=== PATIENT | male | born 1990 | race Hispanic/Latino ===

== ENCOUNTER 2018-07-04 20:50 | Emergency (ER) | payer BC ==
[~2018-07-04] VITALS: Ht 175.3 cm; Wt 108.9 kg
[~2018-07-04 20:50] MED LIST: BUTALB-CAFF-AC1 EACH PO
--- OUTSIDE RECORDS SUMMARY | 2018-07-04 20:53 | XMS REPORT ---
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 Allergies, Adverse Reactions, Alerts Allergy Name Allergy Type Status Severity Reaction(s) Onset Date Inactive Date Treating Clinician Comments No Known Allergies DA Active U 2015-05-23 00:00:00 Medications This patient has no known medications.
[2018-07-04] MEDS ORDERED: ONDANSETRON HCL INJ 2 MG/ML VIAL IV STA (21:12)
[2018-07-04] MEDS ORDERED: SODIUM CHLORIDE 0.9% 1000ML 1,000 ML IV SCH (21:15)
[2018-07-04] MEDS ORDERED: DONNATAL/LIDOCAINE/MAALOX 30 ML SUSP PO ONE (21:15)
[2018-07-04 21:38] LABS: BASOPHILS % 0.6 % (0.0-1.0); EOSINOPHILS # (AUTO) 0.6 (0.0-0.4); EOSINOPHILS % 9.8 % (0.0-6.0); HEMATOCRIT 42.3 % (38.2-49.6); HEMOGLOBIN 14.6 g/dL (14.0-18.0); LYMPHOCYTES % 46.1 % (18.0-39.1); MEAN CORPUSCULAR HEMOGLOBIN 29.8 pg (28-32); MEAN CORPUSCULAR HGB CONC 34.5 g/dL (31-35); MEAN CORPUSCULAR VOLUME 86.3 fL (81-99); MONOCYTES # (AUTO) 0.5 (0.2-0.8); MONOCYTES % 8.1 % (4.4-11.3); NEUTROPHILS # (AUTO) 2.3 (2.1-6.9); NEUTROPHILS % 35.2 % (38.7-80.0); PLATELET COUNT 248 x10e3/uL (140-360); RED CELL DISTRIBUTION WIDTH 12.2 % (11.7-14.4)
--- NOTE | 2018-07-04 22:17 | Diagnostic Imaging Report ---
EXAM: CT ABDOMEN AND PELVIS WITH IV CONTRAST INDICATION: Right and left upper quadrant and back pain, headache COMPARISON: None TECHNIQUE: The abdomen and pelvis were scanned using a multidetector helical scanner. Coronal and sagittal reformations were obtained. Dose modulation, iterative reconstruction, and/or weight based adjustment of the mA/kV was utilized to reduce the radiation dose to as low as reasonably achievable. Routine protocol performed. IV Contrast: 100 cc Isovue-370 Oral Contrast: None CTDIvol has been reviewed. It is below the limits set by the Radiation Protocol Committee (RPC). FINDINGS: LOWER THORAX: No consolidations LIVER: No masses BILIARY: Normal gallbladder. No ductal dilation. SPLEEN: No masses PANCREAS: No masses ADRENALS: No nodules KIDNEYS: No enhancing masses. No hydronephrosis. GI TRACT: No wall thickening or obstruction. The appendix is prominent in its mid section measuring up to 1 cm, however it is completely air-filled and without surrounding inflammation and is likely normal for this patient. VESSELS: Normal PERITONEUM/RETROPERITONEUM: No free air or fluid LYMPH NODES: No lymphadenopathy REPRODUCTIVE ORGANS: Normal BLADDER: Decompressed SOFT TISSUES: Normal BONES: No suspicious bone lesions. IMPRESSION: No acute findings to explain patient's symptoms. Signed by: Dr. Melissa Yu M.D. on 07/04/2018 10:14 PM
[2018-07-04 22:30] VITALS: BP 146/81
== END 2018-07-04 22:37 | disposition home or self-care (01) ==
LOC: FSED 20:50
DX: R10.13 Epigastric pain (principal); R10.12 Left upper quadrant pain; K29.00 Acute gastritis without bleeding
CPT/HCPCS: 36415; 74177; 85025; 99284; J2405

== ENCOUNTER 2018-09-30 10:05 | Emergency (ER) | payer BC ==
[~2018-09-30] VITALS: Ht 175.3 cm; Wt 108.9 kg
[2018-09-30] MEDS ORDERED: ACETAMINOPHEN 325 MG TAB PO ONE ×3 (12:00→18:30)
[2018-09-30 13:16] LABS: STREPTOCOCCUS GRP A ANTIGEN NEGATIVE (NEGATIVE)
[2018-09-30 13:25] LABS: INFLUENZAE A&B ANTIGEN (RAPID) POSITIVE FLU B (NEGATIVE)
[2018-09-30] MEDS ORDERED: IBUPROFEN 600 MG TAB PO STA (13:32)
--- NOTE | 2018-09-30 13:37 | Diagnostic Imaging Report ---
EXAMINATION: CHEST 2 VIEWS INDICATION: Fever, cough, vomiting blood. COMPARISON: None FINDINGS: TUBES and LINES: None. LUNGS: Low lung volumes. No evidence of lobar pneumonia or pulmonary edema. There is bilateral bronchial wall thickening. There is possible bronchiectasis versus a cavitary lesion in the right upper lung. PLEURA: No pleural effusion or pneumothorax. HEART AND MEDIASTINUM: The cardiomediastinal silhouette is unremarkable. BONES AND SOFT TISSUES: No acute osseous abnormality. UPPER ABDOMEN: No free air under the diaphragm. IMPRESSION: Possible bronchiectasis versus cavitary lesion in the right upper lung. Suggest chest CT for further evaluation. Bilateral bronchial wall thickening, suggestive of bronchitis in the setting of cough. No evidence of pneumonia. Signed by: Dr. Josy Andrew MD on 09/30/2018 1:33 PM
[2018-09-30 14:34] LABS: BASOPHILS % 0.3 % (0.0-1.0); EOSINOPHILS # (AUTO) 0.4 (0.0-0.4); EOSINOPHILS % 3.9 % (0.0-6.0); HEMATOCRIT 42.7 % (38.2-49.6); HEMOGLOBIN 14.2 g/dL (14.0-18.0); LYMPHOCYTES # (AUTO) 1.7 (1.0-3.2); LYMPHOCYTES % 17.4 % (18.0-39.1); MEAN CORPUSCULAR HEMOGLOBIN 28.7 pg (28-32); MEAN CORPUSCULAR HGB CONC 33.3 g/dL (31-35); MEAN CORPUSCULAR VOLUME 86.3 fL (81-99); MONOCYTES # (AUTO) 0.7 (0.2-0.8); MONOCYTES % 7.7 % (4.4-11.3); NEUTROPHILS # (AUTO) 6.7 (2.1-6.9); NEUTROPHILS % 70.4 % (38.7-80.0); PLATELET COUNT 215 x10e3/uL (140-360); RED BLOOD COUNT 4.95 x10e6/uL (4.3-5.7); RED CELL DISTRIBUTION WIDTH 12.2 % (11.7-14.4)
[2018-09-30 14:51] LABS: ANION GAP 13.1 mmol/L (8-16); BLOOD UREA NITROGEN 17 mg/dL (7-26); BUN/CREATININE RATIO 16 (6-25); CALCIUM 9.5 mg/dL (8.4-10.2); CARBON DIOXIDE 21 mmol/L (22-29); CHLORIDE 103 mmol/L (98-107); CREATININE, SERUM 1.05 mg/dL (0.72-1.25); EST GLOMERULAR FILTRATION RATE > 60 ML/MIN (60-); GLUCOSE 87 mg/dL (74-118); POTASSIUM 4.1 mmol/L (3.5-5.1); SODIUM 133 mmol/L (136-145)
[2018-09-30] MEDS ORDERED: SODIUM CHLORIDE 0.9% 50ML 50 ML ONE (15:49)
[2018-09-30] MEDS ORDERED: IOPAMIDOL 370 MG/ML 200 ML INFUS..BTL INJ ONE (15:50)
--- NOTE | 2018-09-30 17:51 | Diagnostic Imaging Report ---
EXAMINATION: CT scan of the chest with contrast. TECHNIQUE: Spiral CT images of the chest were performed from the lung apices to the level of the adrenal glands after the intravenous administration Omnipaque 300. Coronal and sagittal reformatted images were obtained. COMPARISON: Chest radiograph 09/30/2018 CLINICAL HISTORY:A 28-year-old presents with hematemesis in the setting of influenza. DISCUSSION: LUNGS AND AIRWAYS: An approximately 2.3 x 2.3 cm rounded groundglass opacity in the posterior aspect of the right upper lobe along the major fissure adjacent to the peribronchovascular bundle. PLEURA: No pneumothorax or pleural effusions. HEART AND MEDIASTINUM: Mildly prominent right hilar node measuring up to 1.2 cm in diameter (series 2, image 40). Otherwise, no significant adenopathy identified. The heart and pericardium are within normal limits. LYMPH NODES: There is no mediastinal, hilar or axillary lymphadenopathy. ABDOMEN: Limited contrast-enhanced views of the upper abdomen show no abnormality within the visualized liver, spleen, pancreas, or kidneys. The adrenal glands are normal. BONES AND SOFT TISSUES: No acute bony abnormalities. IMPRESSION: A non-specific 2.3 cm focal rounded groundglass opacity in the right upper lobe. Finding most likely represents infectious/inflammatory etiology given age; however, consider atypical organisms especially in light of hemoptysis/hematemesis. Recommend follow-up exam in 6-8 weeks, or sooner if clinically indicated, to evaluate for resolution. Signed by: Julius Brock MD on 09/30/2018 5:48 PM
[2018-09-30] MEDS ORDERED: CHERATUSSIN AC118 ML PO (18:10)
[2018-09-30] MEDS ORDERED: DOXYCYCLINE HY100 MG PO (18:10)
== END 2018-09-30 18:35 | disposition home or self-care (01) ==
LOC: ER 10:05
DX: R50.9 Fever, unspecified (principal); R05 Cough; J11.00 Influenza due to unidentified influenza virus with unspecified type of pneumonia; J31.0 Chronic rhinitis
CPT/HCPCS: 36415; 71046; 71260; 80048; 83518; 85025; 87070; 87400; 99284; Q9967